=== PATIENT | male | born 1960 | race Two or more races ===

== ENCOUNTER 2018-06-09 13:35 | Inpatient (IN) | payer MEDICAID, OTHER | END 2018-06-12 01:10 | disposition short-term general hospital (02) | LOC: ER 13:35 → TELE 17:05 → TELE-CENTR 23:05 | DX: E10.10 Type 1 diabetes mellitus with ketoacidosis without coma (principal); N17.0 Acute kidney failure with tubular necrosis; Q28.2 Arteriovenous malformation of cerebral vessels; E66.9 Obesity, unspecified; G40.89 Other seizures; F10.10 Alcohol abuse, uncomplicated; Z72.0 Tobacco use; F10.20 Alcohol dependence, uncomplicated ==